=== PATIENT | female | born 1980 | race Caucasian/White ===

== ENCOUNTER → 2025-01-02 20:26 | Outpatient (REF) | payer BC, SELFPAY | LOC: MRI 3T 20:26 | PROVIDERS: ATTENDING PHYSICIAN Emergency Medicine | DX: R51.9 Headache, unspecified (principal) | CPT/HCPCS: 70553; A9575 ==

== ENCOUNTER → 2025-02-13 14:38 | Outpatient (REF) | payer BC, SELFPAY | LOC: RAD 14:38 | PROVIDERS: ATTENDING PHYSICIAN Emergency Medicine | DX: S69.92XA Unspecified injury of left wrist, hand and finger(s), initial encounter (principal) | CPT/HCPCS: 73130 ==